=== PATIENT | female | born 1990 | race Caucasian/White ===

== ENCOUNTER → 2016-08-12 | Outpatient (CLI) | payer OTHER ==
[~2016-08-12] MED LIST: BCPILLS PO; EFFSR150 PO; MOME100A INH; PRED10TA PO; VILA1TAB2 PO
== END | disposition home or self-care (01) ==
LOC: C.LABSPEC 14:09
PROVIDERS: ATTEND Family Medicine
DX: R19.7 Diarrhea, unspecified (principal)

== ENCOUNTER → 2016-08-25 | Outpatient (CLI) | payer OTHER ==
[~2016-08-25] MED LIST changes: +OPTIRAY 320 IV PRN
--- NOTE | 2016-08-25 16:47 | DIAGNOSTIC IMAGING REPORT ---
ABDOMEN AND PELVIS CT WITH IV AND ORAL CONTRAST CT DOSE: 236.64 mGy.cm HISTORY: Right lower quadrant abdominal pain. TECHNIQUE: Multiaxial CT images of the abdomen and pelvis were performed following the use of intravenous and oral contrast. COMPARISON STUDY: None. FINDINGS: The lung bases are clear. The liver, spleen, gallbladder, pancreas and adrenal glands are within normal limits. No bowel wall thickening or obstruction. The pelvic organs are unremarkable. No suspicious lytic or blastic osseous lesions. There is a left retroaortic renal vein. Small multifocal areas of decreased enhancement within the bilateral kidneys. No hydronephrosis. The bladder is unremarkable. A few sigmoid diverticula. Normal appendix. A punctate stone within the right kidney. Bilateral renal arteries are patent. IMPRESSION: 1. Multiple small wedge-shaped areas of decreased enhancement within the bilateral kidneys suggestive of a bilateral pyelonephritis. Small bilateral renal infarcts could also have a similar appearance but is considered less likely. 2. Right-sided nephrolithiasis. No hydronephrosis. 4. No bowel wall thickening or obstruction. 5. Normal appendix. Electronically signed by: Aristeo Wing M.D. 08/25/2016 4:45 PM Dictated Date/Time: 08/25/2016 4:33 PM
== END | disposition home or self-care (01) ==
LOC: C.CTS 15:19
PROVIDERS: ATTEND Family Medicine
DX: R10.31 Right lower quadrant pain (principal); N20.0 Calculus of kidney

== ENCOUNTER → 2016-08-25 | Outpatient (CLI) | payer OTHER ==
[~2016-08-25] MED LIST changes: -OPTIRAY 320 IV PRN
== END | disposition home or self-care (01) ==
LOC: C.LAB 18:16
PROVIDERS: ATTEND Family Medicine
DX: N39.0 Urinary tract infection, site not specified (principal)

== ENCOUNTER → 2016-08-29 | Outpatient (CLI) | payer OTHER ==
--- NOTE | 2016-08-29 09:32 | DIAGNOSTIC IMAGING REPORT ---
PELVIC ULTRASOUND, TRANSABDOMINAL AND TRANSVAGINAL HISTORY: Pelvic pain. COMPARISON: Abdomen and pelvis CT 08/25/2016. FINDINGS: Uterus: 6.0 x 3.2 x 3.7 cm. Small nabothian cyst. Endometrial stripe: 5 mm in thickness. Right ovary: Normal in size and demonstrates normal color flow. Left ovary: Normal in size and demonstrates normal color flow. Miscellaneous:No pelvic free fluid. IMPRESSION: No significant abnormality identified within the pelvis. Electronically signed by: Aristeo Wing M.D. 08/29/2016 9:30 AM Dictated Date/Time: 08/29/2016 9:27 AM
--- NOTE | 2016-08-29 09:35 | DIAGNOSTIC IMAGING REPORT ---
ULTRASOUND ABDOMEN COMPLETE CLINICAL HISTORY: Generalized abdominal pain. Cramping. COMPARISON STUDY: Abdominal CT dated 08/25/2016. TECHNIQUE: Real-time, grayscale, and color flow sonography of the abdomen was performed. Images are reviewed in the transverse and longitudinal planes. FINDINGS: Liver: The liver is normal in size and echotexture. There is no intrahepatic biliary ductal dilatation. The main portal vein is patent. Gallbladder: The gallbladder is normal in appearance. No gallstones are identified. There is no gallbladder wall thickening or pericholecystic fluid. A sonographic Choi's sign is reportedly absent. The common bile duct measures up to 0.3 cm in diameter. Pancreas: Visualized portions of the pancreatic head and body are normal in appearance. The splenic vein is patent. Spleen: The spleen is normal in size and echotexture, measuring 9.2 cm in length. Kidneys: The kidneys are normal in size and echotexture. There is no hydronephrosis. Mild fullness is noted in the right renal pelvis and there are small bilateral extrarenal pelvises. The right kidney measures 10.5 cm in length and the left kidney measures 9.3 cm in length. No shadowing calculi are identified. Abdominal vasculature: Visualized portions of the abdominal aorta and IVC are normal in appearance. Ascites: None. IMPRESSION: Unremarkable sonographic examination of the abdomen. Electronically signed by: Yao Beck M.D. 08/29/2016 9:33 AM Dictated Date/Time: 08/29/2016 9:31 AM
[2016-08-29 09:40] LABS: URINE APPEARANCE CLEAR (CLEAR); URINE BILIRUBIN NEG (NEG); URINE COLOR YELLOW; URINE NITRITE NEG (NEG); URINE PH 6.5 (4.5-7.5); UROBILINOGEN NEG (NEG)
[2016-08-29 09:48] LABS: MANUAL MICROSCOPIC REQUIRED? NO; REVIEW REQ? NO
[2016-08-29 10:07] LABS: BASO % 0.4 %; BASO ABS # 0.03 K/uL (0-0.2); COMPLETE YES; IG% 0.1 %; MEAN CELL VOLUME 90.9 fL (80-100); MEAN CORPUSCULAR HEMOGLOBIN 31.4 pg (25-34); MEAN CORPUSCULAR HGB CONC 34.5 g/dl (32-36); MEAN PLATELET VOLUME 9.8 fL (7.4-10.4); MONO % 6.7 %; NEUT % 73.8 %; PLATELET COUNT 324 K/uL (130-400); RED BLOOD COUNT 4.62 M/uL (4.2-5.4); WHITE BLOOD COUNT 7.77 K/uL (4.8-10.8)
[2016-08-29 10:34] LABS: CALCIUM 9.4 mg/dl (8.5-10.1)
[2016-08-29 10:36] LABS: PREG INTERNAL NEGATIVE QC NEG CLEAR BACKGROUND; PREG INTERNAL POSITIVE QC POS CONTROL LINE
[2016-08-29 10:38] LABS: ALT/SGPT 18 U/L (12-78); AMYLASE 76 U/L (25-115); BLOOD UREA NITROGEN 9 mg/dl (7-18); BUN/CREATININE RATIO 12.6 (10-20); CARBON DIOXIDE 28 mmol/L (21-32); CHLORIDE 103 mmol/L (98-107); CREATININE 0.73 mg/dl (0.60-1.20); GLUCOSE 86 mg/dl (70-99); POTASSIUM 3.8 mmol/L (3.5-5.1); SODIUM 139 mmol/L (136-145)
[2016-08-29 10:47] LABS: ALKALINE PHOSPHATASE 73 U/L (45-117); AST/SGOT 13 U/L (15-37); TOTAL IRON BINDING CAPACITY 318 mcg/dl (250-450)
== END | disposition home or self-care (01) ==
LOC: C.ULTR 08:04
PROVIDERS: ATTEND Family Medicine
DX: R10.30 Lower abdominal pain, unspecified (principal)

== ENCOUNTER → 2016-09-01 | Outpatient (CLI) | payer OTHER ==
[2016-09-01 17:01] LABS: BASO % 0.5 %; BASO ABS # 0.05 K/uL (0-0.2); COMPLETE YES; EOS % 1.4 %; HEMATOCRIT 40.7 % (37-47); IG% 0.2 %; MEAN CELL VOLUME 89.6 fL (80-100); MEAN CORPUSCULAR HEMOGLOBIN 30.2 pg (25-34); MEAN CORPUSCULAR HGB CONC 33.7 g/dl (32-36); MEAN PLATELET VOLUME 9.3 fL (7.4-10.4); MONO % 7.5 %; NEUT % 67.4 %; PLATELET COUNT 373 K/uL (130-400); RED BLOOD COUNT 4.54 M/uL (4.2-5.4); WHITE BLOOD COUNT 9.12 K/uL (4.8-10.8)
[2016-09-01 17:09] LABS: INR 0.9 (0.9-1.1); PARTIAL THROMBOPLASTIN RATIO 1.1; PROTHROMBIN TIME (PATIENT) 9.6 SECONDS (9.0-12.0)
[2016-09-01 18:35] LABS: PFT COL EPI 173 SECONDS (80-184)
[2016-09-06 00:48] LABS: B2 GLYCOPROTEIN IGA 11 SAU (<=20); B2 GLYCOPROTEIN IGG <9 SGU (<=20); B2 GLYCOPROTEIN IGM <9 SMU (<=20); CHLAMYDIA TRACH RNA*** NOT DETECTED (NOT DETECTED); GC (NEIS GONORRHOEAE)RNA** NOT DETECTED (NOT DETECTED); LUPUS ANTICOAGULANT** TC36573X Negative (Negative)
== END | disposition home or self-care (01) ==
LOC: C.LAB 16:27
PROVIDERS: ATTEND Family Medicine
DX: N28.0 Ischemia and infarction of kidney (principal)

== ENCOUNTER → 2016-09-08 | Outpatient (CLI) | payer OTHER ==
[2016-09-08 12:20] LABS: URINE APPEARANCE CLEAR (CLEAR); URINE BILIRUBIN NEG (NEG); URINE COLOR YELLOW; URINE NITRITE NEG (NEG); URINE PH 5.5 (4.5-7.5); URINE SPECIFIC GRAVITY 1.023 (1.000-1.030); UROBILINOGEN NEG (NEG)
[2016-09-08 12:28] LABS: MANUAL MICROSCOPIC REQUIRED? NO; REVIEW REQ? NO
== END | disposition home or self-care (01) ==
LOC: C.LABSPEC 05:40
PROVIDERS: ATTEND Family Medicine
DX: N39.0 Urinary tract infection, site not specified (principal)

== ENCOUNTER → 2016-09-08 | Outpatient (CLI) | payer OTHER ==
[~2016-09-08] MED LIST changes: +OPTIRAY 320 IV PRN
--- NOTE | 2016-09-08 07:55 | DIAGNOSTIC IMAGING REPORT ---
CT OF THE ABDOMEN AND PELVIS WITH CONTRAST CLINICAL HISTORY: Follow-up abnormal CT scan. COMPARISON STUDY: CT of the abdomen and pelvis August 25, 2016, ultrasound and ultrasound August 29, 2016. TECHNIQUE: Following IV administration of Optiray-320, axial images of the abdomen and pelvis were obtained from the lung bases to the proximal femurs. Images were reviewed in the axial, sagittal, and coronal planes. IV contrast was administered without complication. Oral contrast was administered. CT DOSE: 245.38 mGy.cm FINDINGS: Lung bases are clear. There is no pneumatosis, free air or portal venous gas. The liver, spleen, adrenal glands and pancreas are normal. The appearance of the kidneys is now normal. The hypoenhancing foci within the kidneys shown on exam of August 25, 2016 are no longer visualized. There is no renal abscess. There is a 3 mm right renal calculus. There are no ureteral calculi. There is no hydronephrosis. Prominence of both renal pelves is noted. There is no evidence for a bowel obstruction. The appendix is normal. The ovaries are not enlarged. There is no lymphadenopathy. Skeletal structures are unremarkable. IMPRESSION: 1. Interval resolution of the wedge-shaped hypoenhancing foci shown on exam of August 25, 2016. The nephrograms are symmetric and homogeneous. 2. 3 mm right renal calculus. No ureteral calculi. Otherwise, normal appearance of the kidneys. Electronically signed by: Josh Tipton M.D. 09/08/2016 7:54 AM Dictated Date/Time: 09/08/2016 7:43 AM
== END | disposition home or self-care (01) ==
LOC: C.CTS 07:19
PROVIDERS: ATTEND Family Medicine
DX: R93.8 Abnormal findings on diagnostic imaging of other specified body structures (principal); N20.0 Calculus of kidney

== ENCOUNTER → 2016-10-03 | Outpatient (CLI) | payer OTHER ==
[~2016-10-03] MED LIST changes: +GADAVIST IV PRN; -OPTIRAY 320 IV PRN
--- NOTE | 2016-10-03 17:33 | DIAGNOSTIC IMAGING REPORT ---
MRI OF THE BRAIN COMBO CLINICAL HISTORY: Posttraumatic headache. Visual change. COMPARISON STUDY: CT of the brain dated 08/03/2014. TECHNIQUE: MRI of the brain was performed utilizing various T1 and T2-weighted sequences in the axial, sagittal, and coronal planes. Contrast-enhanced sequences were acquired following the administration of 4.5 cc of Gadavist. FINDINGS: Brain parenchyma: The brain parenchyma is normal in appearance. There is no hemorrhage or mass effect. There is no restricted diffusion to suggest acute ischemia. No enhancing mass lesion is identified on the postcontrast images. Trevino-white matter differentiation is preserved. No extra-axial fluid collection is seen. The cerebellar tonsils are normal in configuration. Ventricles, sulci, and cisterns: Normal in configuration. Pituitary and sella: Unremarkable. Intracranial vasculature: Normal flow voids are maintained at the skull base. Orbits: The bony orbits are grossly intact. Orbital contents are normal in appearance. Sinuses and mastoids: Clear. Calvarium: Unremarkable. Cervical cord: Partially visualized cervical spinal cord is normal in morphology and signal intensity. IMPRESSION: No acute intracranial abnormality. Electronically signed by: Yao Beck M.D. 10/03/2016 5:32 PM Dictated Date/Time: 10/03/2016 5:29 PM
== END | disposition home or self-care (01) ==
LOC: C.MRI 14:42
PROVIDERS: ATTEND Internal Medicine
DX: G44.309 Post-traumatic headache, unspecified, not intractable (principal)

== ENCOUNTER → 2016-10-27 | Outpatient (CLI) | payer OTHER ==
[~2016-10-27] MED LIST changes: -GADAVIST IV PRN
== END ==
LOC: C.PAPS 09:52
PROVIDERS: ATTEND Obstetrics & Gynecology
DX: Z12.4 Encounter for screening for malignant neoplasm of cervix (principal)

== ENCOUNTER → 2016-10-27 | Outpatient (CLI) | payer OTHER ==
[2016-10-30 07:27] LABS: CHLAMYDIA TRACH RNA*** NOT DETECTED (NOT DETECTED); GC (NEIS GONORRHOEAE)RNA** NOT DETECTED (NOT DETECTED)
== END | disposition home or self-care (01) ==
LOC: C.LABSPEC 17:40
PROVIDERS: ATTEND Obstetrics & Gynecology
DX: Z11.3 Encounter for screening for infections with a predominantly sexual mode of transmission (principal)

== ENCOUNTER → 2017-01-31 | Outpatient (CLI) | payer OTHER ==
--- NOTE | 2017-01-31 17:59 | DIAGNOSTIC IMAGING REPORT ---
R KNEE 3 VIEWS CLINICAL HISTORY: 26 years-old Female presenting with ANTERIOR KNEE PAIN. TECHNIQUE: Frontal, lateral, and sunrise views of the right knee were obtained. COMPARISON: None. FINDINGS: No acute fracture or malalignment. No degenerative change. No patellar dislocation. No gross evidence of knee joint effusion. Regional soft tissues normal. IMPRESSION: No acute osseous injury of the right knee. Electronically signed by: Jose Mohamud M.D. 01/31/2017 5:58 PM Dictated Date/Time: 01/31/2017 5:57 PM
--- NOTE | 2017-01-31 18:01 | DIAGNOSTIC IMAGING REPORT ---
L KNEE 3 VIEWS CLINICAL HISTORY: 26 years-old Female presenting with ANTERIOR KNEE PAIN. TECHNIQUE: Frontal, lateral, and sunrise views of the left knee were obtained. COMPARISON: None. FINDINGS: No acute fracture or malalignment. No degenerative change. No patellar dislocation. No gross knee joint effusion. Regional soft tissues within normal limits. IMPRESSION: No acute osseous injury of the left knee. Electronically signed by: Jose Mohamud M.D. 01/31/2017 6:00 PM Dictated Date/Time: 01/31/2017 5:58 PM
== END | disposition home or self-care (01) ==
LOC: C.RAD 17:10
PROVIDERS: ATTEND Family Medicine
DX: M25.561 Pain in right knee (principal); M25.562 Pain in left knee